=== PATIENT | male | born 1930 | race Caucasian/White ===

== ENCOUNTER → 2016-12-13 | Outpatient (CLI) | payer MEDICARE | LOC: ROC 10:52 | PROVIDERS: ATTEND Radiology Radiation Oncology | DX: C43.9 Malignant melanoma of skin, unspecified (principal) | CPT/HCPCS: G0463 ==

== ENCOUNTER → 2017-02-04 | Outpatient (CLI) | payer MEDICARE | END | disposition home or self-care (01) | LOC: ROC 14:01 | PROVIDERS: ATTEND Radiology Radiation Oncology | DX: Z08 Encounter for follow-up examination after completed treatment for malignant neoplasm (principal); C43.9 Malignant melanoma of skin, unspecified | CPT/HCPCS: G0463 ==

== ENCOUNTER → 2017-07-11 | Outpatient (CLI) | payer MEDICARE | LOC: ROC 08:41 | PROVIDERS: ATTEND Radiology Radiation Oncology | DX: Z08 Encounter for follow-up examination after completed treatment for malignant neoplasm (principal); C43.30 Malignant melanoma of unspecified part of face; Z92.3 Personal history of irradiation | CPT/HCPCS: G0463 ==

== ENCOUNTER → 2017-08-10 | Outpatient (CLI) | payer MEDICARE | END | disposition home or self-care (01) | LOC: PETCFH 09:40 | PROVIDERS: ATTEND Radiology Radiation Oncology | DX: C43.39 Malignant melanoma of other parts of face (principal) | CPT/HCPCS: 78816; A9552 ==

== ENCOUNTER 2017-09-09 07:47 | Day surgery (SDC) | payer MEDICARE ==
[~2017-09-09] VITALS: Ht 170.2 cm; Wt 65.2 kg
[~2017-09-09 07:47] MED LIST: ALEN70TA5 PO; ATEN25TA PO; CHOL10003 PO; LEVO100T5 PO; MULT-516 PO
[2017-09-09 08:13] VITALS: BP 143/76
[2017-09-09] MEDS ORDERED: LACTATED RINGERS 1,000 ML IV SCH (08:16)
[2017-09-09] MEDS ORDERED: FENTANYL PF 100 MCG/2ML ONE (10:17)
[2017-09-09] MEDS ORDERED: EPHEDRINE 50 MG/ML, 1ML ONE (10:19)
[2017-09-09] MEDS ORDERED: PHENYLEPHRINE 10 MG/ML ONE (10:19)
[2017-09-09] MEDS ORDERED: FENTANYL PF 100 MCG/2ML IV PRN (10:30)
[2017-09-09] MEDS ORDERED: LABETALOL 5MG/ML, 20ML IV PRN (10:30)
[2017-09-09] MEDS ORDERED: ACETAMINOPHEN 325 MG TABLET PO PRN (10:30)
[2017-09-09] MEDS ORDERED: hydrALAzine 20 MG/ML, 1ML IV PRN (10:30)
[2017-09-09] MEDS ORDERED: CEFAZOLIN 1,000 MG ONE (10:50)
[2017-09-09] MEDS ORDERED: ONDANSETRON 2MG/ML, 2ML ONE (10:50)
[2017-09-09] MEDS ORDERED: NEOSTIGMINE 1 MG/ML, 10ML ONE (10:50)
[2017-09-09] MEDS ORDERED: SUCCINYLCHOLINE 20 MG/ML, 10ML ONE (10:50)
[2017-09-09] MEDS ORDERED: PROPOFOL 10 MG/ML, 20ML ONE (10:50)
[2017-09-09] MEDS ORDERED: DEXAMETHASONE 4 MG/ML, 1ML ONE (10:50)
[2017-09-09] MEDS ORDERED: GLYCOPYRROLATE 0.2MG/1ML, 5ML ONE (10:50)
[2017-09-09] MEDS ORDERED: PROPOFOL 50 ML ONE (11:04)
== END 2017-09-09 15:19 | disposition home or self-care (01) ==
LOC: OR 07:47
PROVIDERS: ATTEND Internal Medicine Critical Care Medicine
DX: I89.8 Other specified noninfective disorders of lymphatic vessels and lymph nodes (principal); C43.39 Malignant melanoma of other parts of face; I10 Essential (primary) hypertension; E03.9 Hypothyroidism, unspecified; Z79.899 Other long term (current) drug therapy; Z88.4 Allergy status to anesthetic agent; Z88.2 Allergy status to sulfonamides; Z88.1 Allergy status to other antibiotic agents; Z82.49 Family history of ischemic heart disease and other diseases of the circulatory system
CPT/HCPCS: 31629; 88172; 88173; 88177; 88305; J0330; J0690; J1100; J2370; J2405; J2704; J2710; J3010; J3490; J7120

== ENCOUNTER → 2017-12-13 | Outpatient (CLI) | payer MEDICARE | END | disposition home or self-care (01) | LOC: CFH 08:00 | PROVIDERS: ATTEND Radiology Radiation Oncology | DX: C43.30 Malignant melanoma of unspecified part of face (principal); R91.1 Solitary pulmonary nodule | CPT/HCPCS: 36415; 82565; 84520 ==

== ENCOUNTER → 2017-12-21 | Outpatient (CLI) | payer MEDICARE | END | disposition home or self-care (01) | LOC: CFH 11:54 | PROVIDERS: ATTEND Radiology Radiation Oncology | DX: R91.8 Other nonspecific abnormal finding of lung field (principal) | CPT/HCPCS: 71250; 82565 ==

== ENCOUNTER → 2017-12-22 | Outpatient (CLI) | payer MEDICARE | END | disposition home or self-care (01) | LOC: ROC 07:49 | PROVIDERS: ATTEND Radiology Radiation Oncology | DX: C43.39 Malignant melanoma of other parts of face (principal); Z79.899 Other long term (current) drug therapy | CPT/HCPCS: G0463 ==

== ENCOUNTER → 2018-02-16 | Outpatient (CLI) | payer MEDICARE | END | disposition home or self-care (01) | LOC: PETCFH 08:51 | PROVIDERS: ATTEND Radiology Radiation Oncology | DX: C43.39 Malignant melanoma of other parts of face (principal) | CPT/HCPCS: 78816; A9552 ==

== ENCOUNTER → 2018-05-22 | Outpatient (CLI) | payer MEDICARE ==
[~2018-05-22] MED LIST changes: -ALEN70TA5 PO; +ALEN70TA6 PO
== END | disposition home or self-care (01) ==
LOC: ROC 12:47
PROVIDERS: ATTEND Internal Medicine
DX: Z08 Encounter for follow-up examination after completed treatment for malignant neoplasm (principal); C43.9 Malignant melanoma of skin, unspecified; L65.9 Nonscarring hair loss, unspecified; R91.8 Other nonspecific abnormal finding of lung field; Z88.4 Allergy status to anesthetic agent; Z88.2 Allergy status to sulfonamides
CPT/HCPCS: G0463

== ENCOUNTER 2018-08-15 09:41 | Outpatient (CLI) | payer MEDICARE | END 2018-08-15 23:59 | disposition home or self-care (01) | LOC: PETCFH 09:41 | PROVIDERS: ATTEND Radiology Radiation Oncology | DX: C73 Malignant neoplasm of thyroid gland (principal) | CPT/HCPCS: 78816; A9552 ==

== ENCOUNTER → 2018-08-17 | Outpatient (CLI) | payer MEDICARE | END | disposition home or self-care (01) | LOC: ROC 08:59 | PROVIDERS: ATTEND Radiology Radiation Oncology | DX: C43.30 Malignant melanoma of unspecified part of face (principal) | CPT/HCPCS: G0463 ==

== ENCOUNTER 2019-08-15 12:32 | Outpatient (CLI) | payer MEDICARE | END 2019-08-15 23:59 | disposition home or self-care (01) | LOC: PETCFH 12:32 | PROVIDERS: ATTEND Radiology Radiation Oncology | DX: C43.30 Malignant melanoma of unspecified part of face (principal); N32.3 Diverticulum of bladder; K57.30 Diverticulosis of large intestine without perforation or abscess without bleeding | CPT/HCPCS: 78816; A9552 ==

== ENCOUNTER → 2020-08-26 | Outpatient (CLI) | payer MEDICARE ==
[~2020-08-26] MED LIST changes: -ALEN70TA6 PO; +ALEN70TA77 PO
== END | disposition home or self-care (01) ==
LOC: PETCFH 07:18
PROVIDERS: ATTEND Radiology Radiation Oncology
DX: C43.4 Malignant melanoma of scalp and neck (principal); R91.8 Other nonspecific abnormal finding of lung field
CPT/HCPCS: 78816; A9552

== ENCOUNTER 2020-09-24 11:05 | Day surgery (SDC) | payer MEDICARE ==
[~2020-09-24] VITALS: Ht 167.6 cm; Wt 61.9 kg
[2020-09-24 11:45] VITALS: BP 136/78
[2020-09-24] MEDS ORDERED: FENTANYL PF 100 MCG/2ML ONE (12:20)
[2020-09-24] MEDS ORDERED: NALOXONE 1 MG/ML, 2ML ONE (12:20)
[2020-09-24] MEDS ORDERED: FLUMAZENIL 0.1 MG/1 ML, 5ML ONE (12:20)
[2020-09-24] MEDS ORDERED: MIDAZOLAM 1 MG/ML, 5ML ONE (12:20)
[2020-09-24] MEDS ORDERED: ACETAMINOPHEN 500 MG TABLET PO ONE (14:00)
== END 2020-09-24 15:50 | disposition home or self-care (01) ==
LOC: OUT 11:05 → EDSTATUS 13:00 → OUT 15:50
PROVIDERS: ATTEND Radiology Radiation Oncology
DX: R91.1 Solitary pulmonary nodule (principal); C34.91 Malignant neoplasm of unspecified part of right bronchus or lung; J95.811 Postprocedural pneumothorax; N18.30 Chronic kidney disease, stage 3 unspecified; Z88.2 Allergy status to sulfonamides; Z88.8 Allergy status to other drugs, medicaments and biological substances; Y83.8 Other surgical procedures as the cause of abnormal reaction of the patient, or of later complication, without mention of misadventure at the time of the procedure
CPT/HCPCS: 32408; 32557; 71045; 88305; 88333; 88342; 99156; 99157; C1729; C1769; J2250; J3010; 32551; 77012; J2310

== ENCOUNTER 2020-09-27 10:42 | Outpatient (CLI) | payer MEDICARE | END 2020-09-27 23:59 | disposition home or self-care (01) | LOC: RAD 10:42 | PROVIDERS: ATTEND Radiology Diagnostic Radiology | DX: Z48.03 Encounter for change or removal of drains (principal); J43.9 Emphysema, unspecified ==